=== PATIENT | female | born 1985 | race Caucasian/White ===

== ENCOUNTER 2018-08-28 16:40 | Emergency (ER) | payer OTHER ==
[2018-08-28] MEDS ORDERED: DEXAMETHASONE 4 MG TABLET PO ONE (18:18)
[2018-08-28] MEDS ORDERED: HYDROCODONE/ACETAMINOPHEN 10-325 MG TABLET PO ONE ×2 (18:19→19:03)
[2018-08-28] MEDS ORDERED: DEXAMETHASONE SOD PHOS INJ 10 MG/1 ML VIAL IM ONE (18:58)
[2018-08-28] MEDS ORDERED: KETOROLAC TROMETHAMINE 60 MG/2 ML SDV IM ONE (18:58)
[2018-08-28] MEDS ORDERED: PENICILLIN G BENZATHINE 1.2 MILLION UNIT/2 ML DISP.SYRIN IM ONE (19:03)
--- NOTE | 2018-08-28 19:13 | ER Document Report ---
HPI - HPI Patient complains to provider of: Sore throat Time Seen by Provider: 08/28/18 18:07 Pain Level: 4 Context: Patient is a 33-year-old female presenting to the emergency department for a sore throat. Patient states sore throat started on Wednesday. Admits to minor congestion, denies cough, nausea, vomiting, diarrhea, dysuria. Patient does admit to a subjective fever. Past medical history: Degenerative disc disease Medications: Tramadol, Xanax Allergies: Sulfa Surgical history: Tonsillectomy, partial hysterectomy, cholecystectomy Patient denies cigarette smoking, illicit drug use, admits to occasional EtOH use. - EENT EENT: REPORTS: Sore Throat Past Medical History - General Information source: Patient - Social History Smoking Status: Never Smoker Chew tobacco use (# tins/day): No Frequency of alcohol use: Occasional Drug Abuse: None Lives with: Family Family History: Reviewed & Not Pertinent Patient has suicidal ideation: No Patient has homicidal ideation: No Renal/ Medical History: Denies: Hx Peritoneal Dialysis Past Surgical History: Reports: Hx Cholecystectomy, Hx Hysterectomy Vertical Provider Document - CONSTITUTIONAL Agree With Documented VS: Yes Notes: GENERAL: Alert, interacts well. No acute distress. HEAD: Normocephalic, atraumatic. No frontal or maxillary sinus tenderness EYES: Pupils equal, round, and reactive to light. Extraocular movements intact. ENT: Oral mucosa moist, tongue midline. TMs intact, nonerythematous, nonbulging. Pharynx erythematous, exudate noted, palatal petechiae noted. NECK: Full range of motion. Supple. Trachea midline. No cervical lymphadenopathy noted. LUNGS: Clear to auscultation bilaterally, no wheezes, rales, or rhonchi. No respiratory distress. HEART: Regular rate and rhythm. No murmur ABDOMEN: Soft, non-tender. Non-distended. Bowel sounds present in all 4 quadrants. EXTREMITIES: Moves all 4 extremities spontaneously. No edema, normal radial and dorsalis pedis pulses bilaterally. No cyanosis. BACK: no cervical, thoracic, lumbar midline tenderness. No saddle anesthesia, normal distal neurovascular exam. NEUROLOGICAL: Alert and oriented x3. Normal speech. cranial nerves II through XII grossly intact. PSYCH: Normal affect, normal mood. SKIN: Warm, dry, normal turgor. No rashes or lesions noted. - INFECTION CONTROL TRAVEL OUTSIDE OF THE .S. IN LAST 30 DAYS: No Course - Re-evaluation Re-evalutation: 08/28/18 19:10 Initially nurse comes to my attention stating patient is refusing to do p.o. medications. Discussed with patient doing an IM shot of dexamethasone and Toradol. Patient states she would like the narcotics and states she will try to p.o. the pill. Patient is able to p.o. the pill with no difficulties. Discussed treating in the emergency room with Bicillin. Patient is very appreciative. 08/28/18 20:17 My attention she is attempting to discharge the patient and her heart rate is 120. Nurse states the patient is lying in the room with the lights out no distress. Upon my examination she does have a heart rate of 120. States the pain in her throat is actually better. States she has not really been drinking that much due to the pain. Discussed starting an IV to rehydrate her and attempt to get her heart rate down. Patient agrees with IV at this time. Discussed this with nursing staff. Basic labs ordered. 08/28/18 21:04 Labs reveal leukocytosis of 15.2, to be expected with strep diagnosis. 08/28/18 21:30 Heart rate continues to be 114 despite liter of fluid. Will give another liter of fluid at this time. 08/28/18 22:25 patient has finished second liter of fluid. Heart rate is now 106. Patient states she feels "1 million times better." She would like to be discharged. Discussed need to continue oral hydration, Tylenol and Motrin for pain, follow- up with primary care. - Vital Signs Vital signs: Temp Pulse Resp BP Pulse Ox 98.8 F 101 H 16 130/75 H 100 08/28/18 17:04 08/28/18 17:04 08/28/18 17:04 08/28/18 17:04 08/28/18 17:04 - Laboratory Result Diagrams: 08/28/18 20:25 08/28/18 20:25 Discharge - Discharge Clinical Impression: Strep pharyngitis Condition: Stable Disposition: HOME, SELF-CARE Instructions: Strep Throat ([facility]) Additional Instructions: As we have discussed you have been seen and treated in the emergency department for strep throat. You were giving a shot of antibiotics you do not need to go home on oral antibiotics. Please return to the emergency room for any other concerning symptoms. Please still well-hydrated and get plenty of rest. Take medications as prescribed.
[2018-08-28] MEDS: HYDROCODONE/ACETAMINOPHEN 5-325 MG (6 TAB/ER DISP) PO PRN ×2 (19:19→20:30)
[2018-08-28] MEDS ORDERED: NORMAL SALINE 1000 ML 1,000 ML IV ONE (20:16)
[2018-08-28 20:36] LABS: HEMATOCRIT 38.6 % (36.0-47.0); HEMOGLOBIN 13.4 g/dL (12.0-15.5); MEAN CORPUSCULAR HEMOGLOBIN 31.9 pg (27.0-33.4); MEAN CORPUSCULAR HGB CONC 34.9 g/dL (32.0-36.0); MEAN CORPUSCULAR VOLUME 92 fl (80-97); PLATELET COUNT 206 10^3/uL (150-450); RED BLOOD COUNT 4.21 10^6/uL (3.72-5.28); WHITE BLOOD COUNT 15.2 10^3/uL (4.0-10.5)
[2018-08-28 20:52] LABS: ANION GAP 12 (5-19); BLOOD UREA NITROGEN 9 mg/dL (7-20); CARBON DIOXIDE 22 mmol/L (22-30); CHLORIDE 108 mmol/L (98-107); GLUCOSE 101 mg/dL (75-110); POTASSIUM 3.9 mmol/L (3.6-5.0)
[2018-08-28 20:56] LABS: ABSOLUTE LYMPHOCYTES# (MANUAL) 0.6 10^3/uL (0.5-4.7); ABSOLUTE MONOCYTES # (MANUAL) 0.8 10^3/uL (0.1-1.4); ABSOLUTE NEUTROPHILS# (MANUAL) 13.7 10^3/uL (1.7-8.2); BASOPHILS % (MANUAL) 0 % (0-2); EOSINOPHILS % (MANUAL) 1 % (0-6); LYMPHOCYTES % (MANUAL) 4 % (13-45); MONOCYTES % (MANUAL) 5 % (3-13); PLATELET COMMENT ADEQUATE; RBC MORPHOLOGY COMMENT NORMO-CYTIC/CHROMIC; SEGMENTED NEUTROPHILS % (MAN) 90 % (42-78); TOTAL CELLS COUNTED 100
[2018-08-28 22:27] VITALS: BP 123/64
== END 2018-08-28 22:27 | disposition home or self-care (01) ==
LOC: ER 16:40
DX: J02.0 Streptococcal pharyngitis (principal); Z79.891 Long term (current) use of opiate analgesic; Z79.899 Other long term (current) drug therapy; Z88.2 Allergy status to sulfonamides
CPT/HCPCS: 99283; 96372; 96360; 36415; 87880; 85025; 80048; J1885; J0561; J7030; J1100